=== PATIENT | female | born 1975 | race Caucasian/White ===

== ENCOUNTER → 2016-10-02 | Outpatient (CLI) | payer OTHER ==
[2016-10-02 15:28] LABS: Basophils % (A) 1 %; CHCM 32.9; Eosinophils # (A) 0.1 k/uL (0-0.7); Eosinophils % (A) 1 %; HCT 39.3 % (34.0-46.0); HDW 2.64; HGB 12.8 gm/dL (11.4-16.0); Luc # (Auto) 0.19; Luc % (Auto) 3; Lymphocytes # (A) 1.7 k/uL (1.0-4.8); Lymphocytes % (A) 21 %; MCH 28.7 pg (25.0-35.0); MCHC 32.4 g/dL (31.0-37.0); MCV 88.6 fL (80.0-100.0); Mean Platelet Volume 7.7; Monocytes # (A) 0.4 k/uL (0-1.0); Monocytes % (A) 5 %; Neutrophils # (A) 5.6 k/uL (1.3-7.7); Neutrophils % (A) 71 %; RBC 4.44 m/uL (3.80-5.40); RDW 14.3 % (11.5-15.5); WBC 7.9 k/uL (3.8-10.6); WBC (Perox) 8.78
== END | disposition home or self-care (01) ==
LOC: LABPAT 15:07
PROVIDERS: ATTEND Obstetrics & Gynecology
DX: Z01.812 Encounter for preprocedural laboratory examination (principal)
CPT/HCPCS: 36415; 85025

== ENCOUNTER 2016-10-10 06:47 | Day surgery (SDC) | payer OTHER ==
[2016-10-09 08:48] VITALS: BMI 31.8
--- NOTE | 2016-10-10 06:01 | P.HPOB ---
History of Present Illness H&P Date: 10/10/16 Chief Complaint: Menorrhagia 41 year old presents for D&C hysteroscopy and endometrial ablation with Novasure and laparoscopic tubal ligation. She has been suffering with heavy menses for years and failed ocps and depo. Review of Systems All systems: negative Constitutional: Denies chills, Denies fever Eyes: denies blurred vision, denies pain Ears, nose, mouth and throat: Denies headache, Denies sore throat Cardiovascular: Denies chest pain, Denies shortness of breath Respiratory: Denies cough Gastrointestinal: Denies abdominal pain, Denies diarrhea, Denies nausea, Denies vomiting Genitourinary: Denies dysuria, Denies hematuria Musculoskeletal: Denies myalgias Integumentary: Denies pruritus, Denies rash Neurological: Denies numbness, Denies weakness Psychiatric: Denies anxiety, Denies depression Endocrine: Denies fatigue, Denies weight change Past Medical History Additional Past Medical History / Comment(s): menorrhagia History of Any Multi-Drug Resistant Organisms: None Reported Past Surgical History: Breast Surgery, Section, Tonsillectomy Additional Past Surgical History / Comment(s): BREAST AUGMENTATION Past Anesthesia/Blood Transfusion Reactions: No Reported Reaction Past Psychological History: No Psychological Hx Reported Smoking Status: Never smoker Past Alcohol Use History: Rare Past Drug Use History: None Reported - Past Family History Mother Family Medical History: No Reported History Medications and Allergies Home Medications Medication Instructions Recorded Confirmed Type No Known Home Medications [No 10/09/16 10/09/16 History Known Home Medications] Allergies Allergy/AdvReac Type Severity Reaction Status Date / Time Penicillins Allergy Anaphylaxis Verified 10/09/16 08:38 Exam Osteopathic Statement: *. No significant issues noted on an osteopathic structural exam other than those noted in the History and Physical/Consult. - Vital Signs Vital signs: Intake and Output 10/09/16 10/09/16 10/10/16 14:59 22:59 06:59 Other: Weight 81.647 kg Patient Weight 10/10/16 06:59 Weight 81.647 kg HEart: RRR Lungs: CTAB Abdomen: soft, nontender Extremeties: neg adriel's Assessment and Plan (1) Menorrhagia Status: Acute (2) Family planning Status: Acute Plan: 1. D&C hysteroscopy and endometrial ablation with novasure and laparoscopic tubal ligation.
[~2016-10-10 06:47] MED LIST: DEXAMETHASONE SOD PHOSPHATE 10 MG/ML 1 ML VIAL IV ONE; LACTATED RINGERS 1,000 ML IV SCH; LIDOCAINE 1% 20 ML VIAL (10MG/ML) FOR IV START INTRADERMA PRN; Pre Op ABX Message 1 EACH MISC MISCELLANE ONE; SCOPOLAMINE 1.5MG/72HR PATCH TRANSDERM ONE
[2016-10-10] MEDS: ONDANSETRON 4 MG/2 ML VIAL IVP ONE ×2 (07:17→10:58)
[2016-10-10] MEDS ORDERED: SUCCINYLCHOLINE CHLORIDE 100 MG/5 ML SYR IV ONE (07:54)
[2016-10-10] MEDS ORDERED: PROPOFOL 10 MG/ML 20 ML VIAL IV ONE (07:54)
[2016-10-10] MEDS ORDERED: NEOSTIGMINE 1 MG/ML 10 ML VIAL ONE (07:54)
[2016-10-10] MEDS ORDERED: ROCURONIUM BROMIDE 10 MG/ML 10 ML VIAL IV ONE (07:54)
[2016-10-10] MEDS ORDERED: GLYCOPYRROLATE 0.2 MG/ML 2 ML VIAL ONE (07:54)
[2016-10-10] MEDS ORDERED: KETOROLAC 30 MG/ML 1 ML VIAL ONE (07:54)
[2016-10-10] MEDS ORDERED: LIDOCAINE 1% INJ 10MG/ML (20 ML MDV) ONE (07:54)
[2016-10-10] MEDS ORDERED: fentaNYL (PF) 50 MCG/ML 2 ML AMP ONE (07:54)
[2016-10-10] MEDS ORDERED: MIDAZOLAM 2 MG/2 ML VIAL ONE (07:54)
[2016-10-10] MEDS ORDERED: BUPIVACAINE (PF) 0.25% 30 ML VIAL SQ ONE (08:09)
[2016-10-10] MEDS ORDERED: LACTATED RINGERS 1,000 ML IV ONE (08:28)
[2016-10-10 09:08] VITALS: TEMP 97.4
[2016-10-10] MEDS: HYDROmorphone 1 MG/ML 1 ML SYRINGE IVP PRN ×2 (09:18→09:30)
[2016-10-10] MEDS ORDERED: IBUPROFEN 200 MG TAB PO ONE (10:27)
[2016-10-10 10:35] VITALS: RESP 16
[2016-10-10 10:56] VITALS: BP 112/64; PULSE 65
--- NOTE | 2016-10-10 12:59 | P.OP ---
Date of Procedure: 10/10/16 Preoperative Diagnosis: Menorrhagia, family planning Postoperative Diagnosis: Menorrhagia, family planning Procedure(s) Performed: D&C, hysteroscopy, endometrial ablation with NovaSure, laparoscopic tubal ligation Anesthesia: KEITH Surgeon: Savanah Andrade Estimated Blood Loss (ml): 20 IV fluids (ml): 1,300 Urine output (ml): 150 Pathology: other (Endometrial curettings) Condition: stable Disposition: PACU Operative Findings: Cavity length 4 cm, width 2.5 cm power 55 W, time of ablation 95 seconds. Question of the adequacy of ablation after the NovaSure. During laparoscopy was noted to she had a retroverted uterus, some endometriosis on the left pelvic sidewall, normal bilateral tubes and ovaries. Description of Procedure: Patient is taken the operating room where general anesthesia was obtained without difficulty. She was prepped and draped in normal sterile fashion dorsal lithotomy position, legs placed in the candy cane stirrups. Bladder was drained of all urine. Weighted speculum placed in the vagina and the anterior lip the cervix was grasped with serial tooth tenaculum. The uterus sounded to 6 cm and the cervix under 2 cm making the cavity length 4 cm. The cervix was dilated to #8 Hegar dilator. Hysteroscopy was then performed. Both ostia were not visualized but there was a smooth contour of the uterus and moderate amount of proliferative endometrium. Sharp curet was then gently used to obtain endometrial curettings. The NovaSure was introduced into the uterus with a cavity length of 4 cm, width 2 cm. after cavity assessment was passed, the time of ablation was 95 seconds at 55 W. Hysteroscopy was again performed and there was some pink to red tissue in the upper part of the uterus and adequate ablation was noted towards the mid uterine area. The kroner manipulator was placed and the rest of the instruments were removed from the vagina. Attention was then turned to the abdomen and gloves were changed. A 10 mm infraumbilical incision was made the scalpel and 10 mm optical trocar was placed under direct visualization. A 5 mm suprapubic Incision was made and a 5 mm optical trocar was placed under direct visualization. Survey of the pelvis revealed normal uterus tubes and ovaries. The uterus is difficult to be manipulated and laid retroverted. The left fallopian tube was grasped with a Kleppinger and fulgurated 2-3 cm on this side in the ampullar portion. The right fallopian tube was grasped with a Kleppinger and fulgurated 2-3 cm in the ampullar portion. All instruments were then removed from the abdomen and vagina. The 10 mm infraumbilical incision was closed with 0 Vicryl and the fascial layer and then 4-0 Vicryl in a subcuticular fashion. The 5 mm incision was closed with 4-0 Vicryl in a subcuticular fashion. Patient tolerated procedure well, sponge and instrument counts correct 2 and she was taken to recovery room in stable condition.
== END 2016-10-10 11:59 | disposition home or self-care (01) ==
LOC: OR 06:47
PROVIDERS: ATTEND Obstetrics & Gynecology
DX: N92.0 Excessive and frequent menstruation with regular cycle (principal); Z30.2 Encounter for sterilization; Z88.0 Allergy status to penicillin; N80.3 Endometriosis of pelvic peritoneum
CPT/HCPCS: 81025; 88305; 58563; 58670; J2250; J1100; J2710; J2405; J2001; J3010; J1885; J1170; J0330; J2704

== ENCOUNTER → 2020-11-26 | Outpatient (CLI) | payer OTHER ==
[2020-11-26 12:13] LABS: Basophils # (A) 0.1 k/uL (0-0.2); Basophils % (A) 1 %; Eosinophils % (A) 1 %; HCT 36.5 % (34.0-46.0); HGB 12.2 gm/dL (11.4-16.0); Lymphocytes % (A) 17 %; MCHC 33.4 g/dL (31.0-37.0); MCV 89.9 fL (80.0-100.0); Mean Platelet Volume 7.1; Monocytes # (A) 0.3 k/uL (0-1.0); Monocytes % (A) 6 %; Neutrophils # (A) 4.6 k/uL (1.3-7.7); Neutrophils % (A) 75 %; Platelet Count 251 k/uL (150-450); RBC 4.07 m/uL (3.80-5.40); RDW 14.1 % (11.5-15.5); WBC 6.1 k/uL (3.8-10.6)
[2020-11-26 12:15] LABS: African American GFR (CKD) >90 (>60 ml/min/1.73 sqM); Anion Gap 4 mmol/L; Blood Urea Nitrogen 14 mg/dL (7-17); Calcium 9.2 mg/dL (8.4-10.2); Carbon Dioxide 31 mmol/L (22-30); Chloride 104 mmol/L (98-107); Glucose 79 mg/dL (74-99); Non-African American GFR(CKD) 85 (>60 ml/min/1.73 sqM); Sodium 139 mmol/L (137-145)
== END | disposition home or self-care (01) ==
LOC: LABWHC1 11:01
PROVIDERS: ATTEND Obstetrics & Gynecology
DX: Z01.812 Encounter for preprocedural laboratory examination (principal)
CPT/HCPCS: 36415; 80048; 85025

== ENCOUNTER 2020-12-09 05:37 | Day surgery (SDC) | payer OTHER ==
[2020-12-02 10:59] VITALS: BMI 32.8
[~2020-12-09 05:37] MED LIST changes: +CLINDAMYCIN 900 MG in DEXTROSE 5% IN WATER 50 ML IVPB PRN; -DEXAMETHASONE SOD PHOSPHATE 10 MG/ML 1 ML VIAL IV ONE; +GENTAMICIN 320 MG in SODIUM CHLORIDE 0.9% 100 ML IVPB PRN; -LACTATED RINGERS 1,000 ML IV SCH; -LIDOCAINE 1% 20 ML VIAL (10MG/ML) FOR IV START INTRADERMA PRN; -Pre Op ABX Message 1 EACH MISC MISCELLANE ONE; -SCOPOLAMINE 1.5MG/72HR PATCH TRANSDERM ONE
[2020-12-09] MEDS ORDERED: ONDANSETRON 4 MG/2 ML VIAL IVP ONE ×2 (05:38→10:24)
[2020-12-09] MEDS ORDERED: DEXAMETHASONE SOD PHOSPHATE 4 MG/ML 1 ML VIAL IV ONE (05:38)
[2020-12-09] MEDS ORDERED: HYDROmorphone 0.5 MG/0.5 ML SYRINGE IVP PRN (05:38)
[2020-12-09] MEDS: LACTATED RINGERS 1,000 ML IV SCH (06:07)
--- NOTE | 2020-12-09 06:40 | P.HPOB ---
History of Present Illness H&P Date: 12/09/20 Chief Complaint: MEnorrhagia 45 year old presents for TLH BS with da lee and diagnostic cystoscopy, possible HAROLDO BSO for menorrhagia and failed novasure ablation. Review of Systems All systems: negative Constitutional: Denies chills, Denies fever Eyes: denies blurred vision, denies pain Ears, nose, mouth and throat: Denies headache, Denies sore throat Cardiovascular: Denies chest pain, Denies shortness of breath Respiratory: Denies cough Gastrointestinal: Denies abdominal pain, Denies diarrhea, Denies nausea, Denies vomiting Genitourinary: Denies dysuria, Denies hematuria Musculoskeletal: Denies myalgias Integumentary: Denies pruritus, Denies rash Neurological: Denies numbness, Denies weakness Psychiatric: Denies anxiety, Denies depression Endocrine: Denies fatigue, Denies weight change Past Medical History Past Medical History: No Reported History History of Any Multi-Drug Resistant Organisms: None Reported Past Surgical History: Section, Tonsillectomy, Tubal Ligation, Uterine Ablation Additional Past Surgical History / Comment(s): Bilateral breast implants, tummy tuck. Past Anesthesia/Blood Transfusion Reactions: Previous Problems w/ Anesthesia Additional Past Anesthesia/Blood Transfusion Reaction / Comment(s): "BP dropped during tummy tuck". Past Psychological History: No Psychological Hx Reported Smoking Status: Former smoker Past Alcohol Use History: None Reported Additional Past Alcohol Use History / Comment(s): "Quit smoking many many yrs ago". Past Drug Use History: Marijuana Additional Drug Use History / Comment(s): Marijuana use daily. States stopping 12/06/20 for the surgery. - Past Family History Mother Family Medical History: Cancer Additional Family Medical History / Comment(s): Pancreatic cancer. Medications and Allergies Home Medications Medication Instructions Recorded Confirmed Type No Known Home Medications 12/02/20 12/09/20 History Allergies Allergy/AdvReac Type Severity Reaction Status Date / Time Penicillins Allergy Anaphylaxis Verified 12/09/20 06:15 surgical tape Allergy Rash/Hives Uncoded 12/09/20 06:15 Exam Osteopathic Statement: *. No significant issues noted on an osteopathic structural exam other than those noted in the History and Physical/Consult. HEart: RRR Lungs: CTAB Abdomen: soft, nontender Extremeties: neg adriel's Assessment and Plan (1) Menorrhagia Current Visit: No Status: Acute Code(s): N92.0 - EXCESSIVE AND FREQUENT MENSTRUATION WITH REGULAR CYCLE SNOMED Code(s): 632268101 Plan: 1. Total laparoscopic hysterectomy bilateral salpingectomy with da lee, diagnostic cystoscopy, possible HAROLDO BSO
[2020-12-09] MEDS ORDERED: MIDAZOLAM 2 MG/2 ML VIAL IVP ONE (06:55)
[2020-12-09] MEDS ORDERED: KETOROLAC 15 MG/ML 1 ML VIAL ONE (07:04)
[2020-12-09] MEDS ORDERED: PROPOFOL 10 MG/ML 20 ML VIAL IV ONE (07:04)
[2020-12-09] MEDS ORDERED: ROCURONIUM 10 MG/ML (5 ML VIAL) IV ONE (07:04)
[2020-12-09] MEDS ORDERED: NEOSTIGMINE 1 MG/ML 10 ML VIAL ONE (07:04)
[2020-12-09] MEDS ORDERED: GLYCOPYRROLATE 0.2 MG/ML 2 ML VIAL ONE (07:04)
[2020-12-09] MEDS ORDERED: SUCCINYLCHOLINE CHLORIDE 100 MG/5 ML SYR IV ONE (07:04)
[2020-12-09] MEDS ORDERED: fentaNYL (PF) 50 MCG/ML 2 ML AMP ONE (07:04)
[2020-12-09] MEDS ORDERED: HYDROmorphone (PF) 1 MG/ML ONE (07:04)
[2020-12-09] MEDS ORDERED: MORPHINE SULFATE (PF) 0.3 MG/0.3 ML SYR ONE (07:04)
[2020-12-09] MEDS ORDERED: MIDAZOLAM 2 MG/2 ML VIAL ONE (07:04)
[2020-12-09] MEDS ORDERED: PHENYLEPHRINE-0.9% NACL SYG 1,000 MCG/10 ML SYRINGE ONE (07:04)
[2020-12-09] MEDS ORDERED: LIDOCAINE 1% INJ 10MG/ML (20 ML MDV) ONE (07:04)
[2020-12-09] MEDS ORDERED: BUPIVACAINE (PF) 0.25% 30 ML VIAL SQ ONE ×2 (07:44)
[2020-12-09] MEDS ORDERED: LACTATED RINGERS 1,000 ML IV ONE (08:46)
[2020-12-09] MEDS ORDERED: KETOROLAC 15 MG/ML 1 ML VIAL IVP PRN (09:54)
[2020-12-09] MEDS ORDERED: PROMETHAZINE INJ 25 MG/ML 1 ML VIAL IVPB ONE (10:46)
[2020-12-09] MEDS ORDERED: Acetaminophen-Codeine 300-30mg TAB PO PRN ×2 (10:49)
[2020-12-09] MEDS ORDERED: METOCLOPRAMIDE 5 MG/ML 2 ML VIAL IVP ONE (11:00)
--- NOTE | 2020-12-09 11:00 | P.OP ---
Date of Procedure: 12/09/20 Preoperative Diagnosis: 1. Menorrhagia Postoperative Diagnosis: 1. Menorrhagia Procedure(s) Performed: Total laparoscopic hysterectomy with right salpingectomy using da Eris and diagnostic cystoscopy Anesthesia: KEITH Surgeon: Savanah Andrade Woodworking Machine Operator #1: Mason Shi Estimated Blood Loss (ml): 100 IV fluids (ml): 800 Urine output (ml): 100 Pathology: other (Uterus, cervix, right fallopian tube) Condition: stable Disposition: PACU Operative Findings: Scar tissue in the left adnexa. Normal uterus, and ovaries. Some hydrosalpinx noted in the right fallopian tube. Description of Procedure: Patient taken the operating room where general anesthesia was obtained without difficulty. She is prepped and draped in normal sterile fashion dorsal lithotomy position, legs placed in the Gumaro stirrups. Weighted speculum placed in the vagina and the anterior lip the cervix was grasped with single-tooth tenaculum. The uterus sounded to 10 cm and the cervix diameter was 3.5 cm. The appropriate manipulator tip and ring were placed on the Debra manipulator. The Debra manipulator was then placed in the uterus. Riley catheter was also placed. Attention was then turned to the abdomen and gloves were changed. A 5 mm supraumbilical incision was made the scalpel and a 5 mm optical trocar was placed under direct visualization. 10 cm to the right of this and 2 cm down a 5 mm incision was made and 8 mm da Eris port was placed under direct visualization. Same measurements on the opposite side of the patient's abdomen, the 5 mm incision was made and 8 mm da Eris port was placed under direct visualization. In the left upper quadrant a 10 mm incision was made and a 10 mm optical trocar was placed under direct visualization. The 5 mm optical trocar was then replaced with the 8 mm da Eris camera port. The robot was docked on patient's right side. The camera was introduced and then the monopolar curved scissor and [place] bipolar placed under direct visualization. I broke scrub and went to the physician console. The left side of the pelvis noted some adhesions. The ovary is attached to the pelvic sidewall and was also attached to the posterior aspect of the uterus. The left fallopian tube was also attached to some bowel and the left pelvic sidewall. I will leave the fallopian tube. The left utero-ovarian ligament was cauterized with the [place] bipolar and cut with monopolar curved scissors. The left round ligament was cauterized with the [place] bipolar and cut with monopolar curved scissors. The posterior leaf of the broad ligament was taken down using the monopolar curved scissors. Anterior leaf of the broad ligament was then taken down using the monopolar curved scissors. The uterine artery was cauterized with the [place] bipolar and cut with monopolar curved scissors. The bladder flap was then started using the monopolar curved scissors. Attention was then turned to the right side of the patient's anatomy. The right fallopian tube was raised with a grasper and the right mesosalpinx was cauterized and cut to separate from the ovary. the right utero-ovarian ligament was cauterized with the [place] bipolar and cut wi th monopolar curved scissors. The right round ligament was cauterized with the [place] bipolar and cut with monopolar curved scissors. Posterior leaf of the broad ligament was taken down using the monopolar curved scissors and the anterior leaf was taken down using the monopolar curved scissors. The uterine artery was cauterized the [place] bipolar cut with monopolar curved scissors. The bladder flap was then finished on this side. Anterior colpotomy was made using the monopolar curved scissors. The rest of the uterus was from the vaginal cuff by following the ring around with the monopolar curved scissors through the uterosacral ligaments back to the anterior portion. Once the uterus and cervix were amputated they were pulled through the vaginal cuff. Hemostasis was assured. The instruments were changed for the Cardier forcep and the neeraj suture cut. The vaginal cuff was then closed using 2-O stratafix barbed suture in a running fashion. Hemostasis was again assured and the pelvis was irrigated. All instruments were removed from the abdomen and the robot was undocked. I scrubbed back in to perform a cystoscopy. There were jets from both ureteral orifices. The abdominal incisions were closed with 4-0 Vicryl in a subcuticular fashion. Patient tolerated the procedure well, sponge and instrument counts correct 2 and she was taken to recovery room in stable condition condition
--- NOTE | 2020-12-09 12:05 | P.ANPRN ---
Procedure Note - Anesthesia - Epidural/Spinal Spinal Time Out Performed: Yes Date of Procedure: 12/09/20 Procedure Start Time: 06:54 Procedure Stop Time: 07:03 Location of Patient: PreOp Indication: Acute Post-Operative Pain, Requested by Surgeon Sedation Type: Sedate with meaningful contact maintained Preparation: Sterile Prep Position: Sitting Catheter: None Needle Guage: 18 Narrative: After the informed consent was obtained and all the questions answered, Patient was positioned in sitting posture. The back was cleaned and draped after palpating the L3-L4 interspace. 3 mL of 1% lidocaine infiltrated into the aforementioned space. A 25-gauge attack of needle was introduced into the space and a clear flow of CSF was obtained. No blood was aspirated. 300 g of Duramorph and 25 g fentanyl drawn up with a Filter Needle and injected into the spinal space under aseptic precautions. Needle was withdrawn and the puncture garo with a platelet dressed with Band-Aid. Patient tolerated the procedure very well with no apparent complications noted. Blood Aspirated: No Pain Paresthesia on Injection Noted: No Events: Uneventful and Well Tolerated
[2020-12-09] MEDS ORDERED: SIMETHICONE 80 MG CHEWABLE PO PRN (22:33)
[2020-12-10 08:59] VITALS: BP 104/62; PULSE 83; RESP 14; TEMP 98.2
[2020-12-10] MEDS: LACTATED RINGERS 1,000 ML IV SCH (09:03)
[2020-12-10] MEDS ORDERED: ACETAMINOPHEN TAB 325 MG TAB PO PRN (09:56)
--- NOTE | 2020-12-10 12:42 | P.DS ---
Providers Expected date of discharge: 12/10/20 Attending physician: Savanah Andrade Primary care physician: Vahe Amato - Discharge Diagnosis(es) (1) Menorrhagia Current Visit: No Status: Resolved (2) History of robot-assisted laparoscopic hysterectomy Current Visit: Yes Status: Acute Hospital Course: Patient presented for TLHBSO with da Eris and diagnostics a cystoscopy. She underwent this procedure without complication. Postoperatively her pain is well-controlled she is tolerating regular diet and passing flatus. Voiding and doing without difficulty. She desires to have some vaginal bleeding postoperative day #1 but speculum exam was performed and there is no active bleeding. Patient will be discharged home postoperative day #1 in stable condition to follow-up with me in 3 weeks. Plan - Discharge Summary Discharge Rx Participant: Yes New Discharge Prescriptions: New Ibuprofen [Motrin] 600 mg PO Q6HR PRN #30 tab PRN Reason: Mild Pain Or Fever >= 100.5 Acetaminophen-Codeine 300-30mg [Tylenol #3] 2 tab PO Q6H PRN #20 tablet PRN Reason: Pain Discharge Medication List Acetaminophen-Codeine 300-30mg [Tylenol #3] 2 tab PO Q6H PRN #20 tablet 12/10/20 [Rx] Ibuprofen [Motrin] 600 mg PO Q6HR PRN #30 tab 12/10/20 [Rx] Follow up Appointment(s)/Referral(s): Savanah Andrade DO [Doctor of Osteopathic Medicine] - 3 Weeks Discharge Disposition: HOME SELF-CARE
--- NOTE | 2020-12-11 12:34 | P.PN ---
Progress Note - Text Progress Note Date: 12/10/20 Postoperative day 1 status post hysterectomy, and intrathecal morphine given for postoperative analgesia, patient doing well, there is no anesthesia related complications Patient had no headache, vital signs stable Assessment and plan = postop day 1 status post hysterectomy, doing well there is no anesthesia related complication
== END 2020-12-10 13:00 | disposition home or self-care (01) ==
LOC: OR 05:37 → 6PED 09:01 → 4FBP 10:02 → OR 12-10 13:00
PROVIDERS: ATTEND Obstetrics & Gynecology
DX: N92.0 Excessive and frequent menstruation with regular cycle (principal); D25.9 Leiomyoma of uterus, unspecified; N87.9 Dysplasia of cervix uteri, unspecified; N88.8 Other specified noninflammatory disorders of cervix uteri; N80.0 Endometriosis of uterus; Z88.0 Allergy status to penicillin; Z87.891 Personal history of nicotine dependence
CPT/HCPCS: 52000; 58571; S2900; 81025; 86850; 86900; 86901; 88307

== ENCOUNTER → 2022-12-20 | Outpatient (CLI) | payer OTHER ==
--- NOTE | 2022-12-21 08:36 | MM ---
Reason for Exam: Screening (asymptomatic). Patient History: Menarche at age 13. First Full-Term at age 19. Hysterectomy at age 45. Risk Values: Darling 5 year model risk: 0.6%. NCI Lifetime model risk: 6.9%. Tissue Density: There are scattered fibroglandular densities. Findings: Analyzed By CAD. There is no suspicious group of microcalcifications or suspicious mass in either breast. Bilateral breast implants appear intact. Overall Assessment: Benign, BI-RAD 2 Management: Screening Mammogram of both breasts in 1 year. A clinical breast exam by your physician is recommended on an annual basis and results should be correlated with mammographic findings. Note on Darling scores and lifetime risk: 1. A Darling score greater than 3% is considered moderate risk. If this is the case, consider specialist referral to assess eligibility for a risk reducing agent. If overall lifetime risk for the development of breast cancer is 20% or higher, the patient may qualify for future screening with alternating mammogram and breast MRI. Electronically signed and approved by: Jesus Swann D.O.
== END | disposition home or self-care (01) ==
LOC: RADMAMWWP 14:45
PROVIDERS: ATTEND Family Medicine
DX: Z12.31 Encounter for screening mammogram for malignant neoplasm of breast (principal)
CPT/HCPCS: 77067